=== PATIENT | female | born 1955 ===

== ENCOUNTER 2019-11-22 17:33 | Emergency (ER) | payer MEDICARE, OTHER ==
--- NOTE | 2019-11-22 17:51 | EDM.PDOC ---
ED HPI GENERAL MEDICAL PROBLEM - General Chief Complaint: Lower Extremity Injury/Pain Stated Complaint: INJURY TO RIGHT FOOT Time Seen by Provider: 11/22/19 17:35 Source of Information: Reports: Patient History Limitations: Reports: No Limitations - History of Present Illness INITIAL COMMENTS - FREE TEXT/NARRATIVE: HISTORY AND PHYSICAL: History of present illness: Patient is a 64-year-old female who presents to the emergency room with complaints of right foot pain. She says approximately a week ago she had jumped and landed wrong resulting in pain, swelling and bruising. She states the pain has not improved regardless of icing, elevating and taking over-the- counter pain medication. She has had increased pain when having to move her foot down (point and flex movement) accelerating while driving. She is concerned that it is "broken". She denies any numbness, tingling or saddle paresthesias. She is able to weight-bear although this is painful. Offers no systemic complaints. Review of systems: As per history of present illness and below otherwise all systems reviewed and negative. Past medical history: As per history of present illness and as reviewed below otherwise noncontributory. Surgical history: As per history of present illness and as reviewed below otherwise noncontributory. Social history: See social history for further information Family history: As per history of present illness and as reviewed below otherwise noncontributory. Physical exam: General: Well-developed and well-nourished 64-year-old female. Alert and oriented. Nontoxic-appearing and in no acute distress HEENT: Atraumatic, normocephalic, pupils equal and reactive bilaterally, negative for conjunctival pallor or scleral icterus, mucous membranes moist, trachea midline. No drooling or trismus noted. No meningeal signs. No hot potato voice noted. Lungs: Clear to auscultation, breath sounds equal bilaterally. Heart: S1S2, regular rate and rhythm without overt murmur Skin: She does have bruising to the solar mid surface along the arch and at the base of the second and third toe. Otherwise remaining skin is intact, warm, dry. No lesions or rashes noted. Extremities: Pain to the right lateral foot and solar mid surface. She does have bruising to the solar mid surface along the arch and at the base of the second and third toe. No medial or lateral malleolus tenderness. She has pain with weightbearing although she moves all extremities per self without difficulty or deficits. Negative for cords or calf pain. Neurovascular unremarkable. Neuro: Awake, alert, oriented. Cranial nerves II through XII unremarkable. Cerebellum unremarkable. Motor and sensory unremarkable throughout. Exam nonfocal. Notes: X-ray shows a right fifth metatarsal fracture. This was shared with the patient. I will put her in a cam walker boot and crutches for comfort until she is cleared by podiatry. Follow-up and supportive care measures were reviewed and discussed. Voices understanding and is agreeable to plan of care. Denies any further questions or concerns at this time. Diagnostics: X-ray Therapeutics: CAM walker boot and crutches Prescription: Tramadol (#20) Impression: Right 5th metatarsal fracture Plan: 1. Rest, ice, elevate the affected extremity. Please wear the splint and use crutches to be non-weightbearing until your cleared by podiatry. 2. Tylenol and/or Ibuprofen as needed for pain management. Tramadol for her to severe pain. This medication may cause drowsiness so do not take it while driving or needing to be functioning outside of the house. 3. Follow up with the Podiatry or orthopedic provider as we discussed. Return to the ED as needed and as discussed. Definitive disposition and diagnosis as appropriate pending reevaluation and review of above. Right Foot Pain Score (Numeric/FACES): 8 - Related Data Allergies Allergy/AdvReac Type Severity Reaction Status Date / Time No Known Allergies Allergy Verified 11/22/19 17:47 Home Meds: Home Meds . [No Known Home Meds] 11/22/19 [History] Review of Systems - Review of Systems Review Of Systems: Comprehensive ROS is negative, except as noted in HPI. ED EXAM, GENERAL - Physical Exam Exam: See Below (See dictation) Course - Vital Signs Last Recorded V/S: Last Vital Signs Temp 98.1 F 11/22/19 17:47 Pulse 105 H 11/22/19 17:47 Resp 18 11/22/19 17:47 BP 108/69 11/22/19 17:47 Pulse Ox 95 11/22/19 17:47 - Orders/Labs/Meds Orders: Active Orders 24 hr Category Date Time Status DME for Discharge [COMM] Stat Oth 03/03/20 18:26 Ordered Departure - Departure Time of Disposition: 18:30 Disposition: Home, Self-Care 01 Clinical Impression: Metatarsal fracture Qualifiers: Encounter type: initial encounter Metatarsal bone: fifth Fracture type: closed Fracture alignment: nondisplaced Laterality: right Qualified Code(s): S92.354A - Nondisplaced fracture of fifth metatarsal bone, right foot, initial encounter for closed fracture - Discharge Information Instructions: Metatarsal Fracture Referrals: PCP,None [Primary Care Provider] - Forms: ED Department Discharge Additional Instructions: The following information is given to patients seen in the emergency department who are being discharged to home. This information is to outline your options for follow-up care. We provide all patients seen in our emergency department with a follow-up referral. The need for follow-up, as well as the timing and circumstances, are variable depending upon the specifics of your emergency department visit. If you don't have a primary care physician on staff, we will provide you with a referral. We always advise you to contact your personal physician following an emergency department visit to inform them of the circumstance of the visit and for follow-up with them and/or the need for any referrals to a consulting specialist. The emergency department will also refer you to a specialist when appropriate. This referral assures that you have the opportunity for follow-up care with a specialist. All of these measure are taken in an effort to provide you with optimal care, which includes your follow-up. Under all circumstances we always encourage you to contact your private physician who remains a resource for coordinating your care. When calling for follow-up care, please make the office aware that this follow-up is from your recent emergency room visit. If for any reason you are refused follow-up, please contact the [facility] Emergency Department at and asked to speak to the emergency department charge nurse. [facility] [address] [place] [id number] [facility] [address] [place] [id number] 1. Rest, ice, elevate the affected extremity. Please wear the splint and use crutches to be non-weightbearing until your cleared by podiatry. 2. Tylenol and/or Ibuprofen as needed for pain management. Tramadol for her to severe pain. This medication may cause drowsiness so do not take it while driving or needing to be functioning outside of the house. 3. Follow up with the Podiatry or orthopedic provider as we discussed. Return to the ED as needed and as discussed. Sepsis Event Note - Focused Exam Vital Signs: Vital Signs Temp Pulse Resp BP Pulse Ox 11/22/19 17:47 98.1 F 105 H 18 108/69 95 Date Exam was Performed: 11/22/19 Time Exam was Performed: 18:27 - My Orders Last 24 Hours: My Active Orders 11/22/19 18:26 DME for Discharge [COMM] Stat - Assessment/Plan Last 24 Hours: My Active Orders 11/22/19 18:26 DME for Discharge [COMM] Stat
--- NOTE | 2019-11-22 18:24 | CR ---
Right foot: 2 views of the right foot were obtained. Comparison: No previous foot exam. Fracture is identified within the shaft of the 5th metatarsal. Alignment remains close to anatomic. Degenerative change is noted within the 1st MTP joint with joint space narrowing, small subchondral cyst and osteophytes. No additional abnormality is appreciated. Impression: 1. 5th metatarsal fracture. 2. Degenerative change as noted above. Diagnostic code #3 This report was dictated in [place] Standard Time
== END 2019-11-22 18:54 | disposition home or self-care (01) ==
LOC: MW.ED 17:33
DX: S92.354A Nondisplaced fracture of fifth metatarsal bone, right foot, initial encounter for closed fracture (principal); X58.XXXA Exposure to other specified factors, initial encounter
CPT/HCPCS: 73620-26-RT; 73620-RT; 99283; 99283-25